=== PATIENT | female | born 1990 | race Caucasian/White ===

== ENCOUNTER 2017-09-24 16:08 | Emergency (ER) | payer OTHER ==
[~2017-09-24] VITALS: Ht 160 cm; Wt 79.4 kg
[~2017-09-24 16:08] MED LIST: AUGMENTIN 875875 MG PO; BLEPHAMIDE EYE D5 ML OPHTHALMIC; FLEXERIL PO; HYDROCODON-ACE1 EAC7 PO; IBUPROFEN 800800 M1 PO; IBUPROFEN 800800 MG PO; KEFLEX500 MG PO; NOHOMEMEDICATIONS; NORCO 5-325 TA1 EACH PO; PREDNISONE50 MG PO; VALACYCLOVIR500 MG PO; ZOFRAN ODT4 MG SUBLING; ZOFRAN4 MG PO
[2017-09-24 18:14] VITALS: BP 115/67
== END 2017-09-24 18:16 | disposition home or self-care (01) ==
LOC: M.ERS 16:08
DX: M79.602 Pain in left arm (principal); F17.210 Nicotine dependence, cigarettes, uncomplicated; Z88.8 Allergy status to other drugs, medicaments and biological substances

== ENCOUNTER 2018-01-21 19:20 | Emergency (ER) | payer OTHER ==
[~2018-01-21] VITALS: Ht 157.5 cm; Wt 81.7 kg
[2018-01-21 19:36] LABS: URINE BILIRUBIN NEGATIVE (Negative); URINE BLOOD 1+ (Negative); URINE CLARITY CLEAR; URINE COLOR YELLOW; URINE GLUCOSE-RANDOM NEGATIVE (Negative); URINE KETONES NEGATIVE (Negative); URINE LEUKOCYTES-REFLEX 1+ (Negative); URINE NITRITE-REFLEX NEGATIVE (Negative); URINE PROTEIN NEGATIVE (Negative); URINE SPECIFIC GRAVITY 1.025 (1.005-1.030); URINE UROBILINOGEN 0.2 E.U./dl (0.2-1.0)
[2018-01-21 19:46] LABS: SQUAMOUS >10 Many /LPF (0-3); URINE WBC-REFLEX 6-15 Few /HPF (0-5)
[2018-01-21 19:47] LABS: BACTERIA-REFLEX 1-9 Few /HPF (None Seen); CASTS None Seen /LPF (None Seen); CRYSTALS None Seen /LPF (None Seen); URINE RBC 3-10 Few /HPF (0-2)
[2018-01-21 20:18] VITALS: BP 125/66
== END 2018-01-21 20:20 | disposition home or self-care (01) ==
LOC: M.ERS 19:20
PROVIDERS: Emergency Medicine
DX: S40.022A Contusion of left upper arm, initial encounter (principal); F17.210 Nicotine dependence, cigarettes, uncomplicated; Z88.8 Allergy status to other drugs, medicaments and biological substances; X58.XXXA Exposure to other specified factors, initial encounter; Y93.89 Activity, other specified; Y92.89 Other specified places as the place of occurrence of the external cause; Y99.8 Other external cause status

== ENCOUNTER 2018-08-16 08:42 | Emergency (ER) | payer OTHER ==
[~2018-08-16] VITALS: Ht 160 cm; Wt 72.6 kg
[2018-08-16 09:48] LABS: ABSOLUTE EOSINOPHILS 0.1 thou/uL (0.0-0.7); ABSOLUTE LYMPHOCYTES 2.6 thou/uL (0.8-5.3); ABSOLUTE MONOCYTES 0.5 thou/uL (0.0-1.2); ABSOLUTE NEUTROPHILS 3.7 thou/uL (1.6-8.1); BASOPHILS 0.4 %; EOSINOPHILS 1.8 %; HEMATOCRIT 42.4 % (37.0-47.0); HEMOGLOBIN 14.8 gm/dL (12.0-15.0); LYMPHOCYTES 37.5 %; MCH 30.3 pg (26.0-34.0); MCHC 34.9 g/dL (28.0-37.0); MONOCYTES 6.7 %; MPV 7.9 fl. (7.2-11.1); NUCLEATED RBCS 0 /100WBC; PLATELET COUNT* 268 thou/uL (150-400); POLYS 53.6 %; RBC 4.88 mil/uL (4.20-5.00); RDW-CV 12.9 % (10.5-14.5); WBC 6.9 thou/uL (4.0-11.0)
[2018-08-16 10:06] LABS: ALBUMIN 3.6 g/dL (3.4-5.0); ALKALINE PHOSPHATASE 117 U/L (46-116); ANION GAP 8 mmol/L (7-16); BUN 8 mg/dL (7-18); CALCIUM 8.8 mg/dL (8.5-10.1); CHLORIDE 105 mmol/L (98-107); CO2 26 mmol/L (21-32); CREATININE 0.9 mg/dL (0.6-1.3); GLUCOSE 94 mg/dL (70-99); POTASSIUM 4.1 mmol/L (3.5-5.1); SGOT 23 U/L (15-37); SGPT 41 U/L (30-65); SODIUM 139 mmol/L (136-145); TOTAL BILIRUBIN 0.3 mg/dL (<0.1-1.0); TOTAL PROTEIN 7.5 g/dL (6.4-8.2); TROPONIN-I LEVEL <0.06 ng/mL (<0.06)
[2018-08-16 10:09] LABS: PROTIME 9.9 Seconds (9.20-11.50)
[2018-08-16 10:40] VITALS: BP 102/62
--- NOTE | 2018-08-16 13:15 | EKG ---
[place] [address] ELECTROCARDIOGRAM REPORT Name: IRINEO CRUZ Room: [facility]#: [id number] Admission: 08/16/18 Attend Phys: Discharge: 08/16/18 Date of : [birth year] Report #: [id number] THIS REPORT FOR: //name// [facility] ED Test Date: 2018-08-16 Test Time: 09:19:52 Pat Name: IRINEO CRUZ Department: Room: Gender: F [employer] Consultant: GAMALIEL : 1990 Requested By: Dung Elizabeth Order Number: [id number] MD: Gonzalo Lou Measurements Intervals [place] Rate: 79 P: 51 TN: 131 QRS: 69 QRSD: 87 T: 54 QT: 358 QTc: 411 Interpretive Statements Sinus rhythm No previous ECG available for comparison Electronically Signed On 08-16-2018 13:14:21 CDT by Gonzalo Lou [email or web address] <ELECTRONICALLY SIGNED> By: Gonzalo Lou MD, [facility] 08/16/18 1314 0919 8 Gonzalo Lou MD, FACC /EPI
--- NOTE | 2018-08-18 14:23 | CON ---
[facility] [address] [place] [address] CONSULTATION Name: IRINEO CRUZ Room: [facility] Sushant#: [id number] Admission: 08/16/18 Attend Phys: Discharge: 08/16/18 Date of : [birth year] Report #: [id number] THIS REPORT FOR: //name// CC: LAURA physician/PCP Dung Elizabeth DATE OF SERVICE: 08/16/2018 HISTORY OF PRESENT ILLNESS: This is a 28-year-old female patient who was evaluated by me for a right facial field deficit. The patient states that she is having headache. She is having nausea and she will not cooperate. I was called by Dr. Elizabeth, the Emergency Room physician, when I was in [facility] for a right-sided visual field deficit. He said the patient's deficit has started around 8:00 and she was having right hemianopsia. He indicated that the patient was not and she was not on any hormones, but the right visual deficit was there. She was within the window for TPA if it was a stroke and I came immediately to see the patient in [facility]. During that drive, I talked to the MRI people say and told to the patient on the table and do the MRI and MRA in this patient and they did that but the patient refused MRI. When I came in, the patient would not provide any good history. She said she has migraine headache and she has migraine headache multiple times in the past. She wants to tell me how severe they are. She said it is a generalized headache. She has nausea. She does not want any medication for that. She states she just usually sleeps through that. This patient has a large record in the computer and she had numerous Emergency Room visits in the past. She has been seen by multiple Emergency Room physicians in the past and Dr. Marin has seen this patient for headache in the past. She also has come to the Emergency Room for multiple other complaints. She would not provide any further history and just basically wanted to go home. I carried out 14-point review of systems the best I could but she did not come up with much history. PAST MEDICAL HISTORY: Positive for migraine. SOCIAL HISTORY: Unavailable because the patient did not provide that history in spite of asking her multiple times. PHYSICAL EXAMINATION: Pretty limited because she will not cooperate, but she did allow me to look at the visual cardozo and it does not appear that the patient has any hemianopsia. In fact, I could not detect any focal neurological examination on the limited exam she allowed. LABORATORY DATA: Her sodium is normal. Her white count is normal. RADIOLOGICAL DATA: She did have a CT scan of the head ordered by Emergency Room physician and [place] [address] CONSULTATION Name: IRINEO CRUZ [id number] Admission: 08/16/18 Attend Phys: Discharge: 08/16/18 Date of : [birth year] Report #: [id number] IMPRESSION AND PLAN: I discussed with the patient that she needs further workup. She refused MRI. I did not see a test on her. So, I was going to do a test in this patient and then, do a CT angiogram to see if we can detect any abnormality. She refused all the treatment. She is competent to make her decisions and she understands the consequences of noncompliance. However, she wanted to go home and I was not able to do any tests or treatment. I checked out with the Emergency Room physician again and I talked to the nurses looking after this patient. I had talked to MRI also. Thank you very much for this referral. <ELECTRONICALLY SIGNED> By: Pilo Leong MD 08/18/18 1423 1218 [id number] Leong MD /nt
== END 2018-08-16 10:42 | disposition home or self-care (01) ==
LOC: M.ERS 08:42
PROVIDERS: Emergency Medicine
DX: G43.809 Other migraine, not intractable, without status migrainosus (principal); F17.210 Nicotine dependence, cigarettes, uncomplicated; Z88.8 Allergy status to other drugs, medicaments and biological substances; Z88.6 Allergy status to analgesic agent; Z98.890 Other specified postprocedural states

== ENCOUNTER 2018-12-28 08:17 | Emergency (ER) | payer OTHER ==
[~2018-12-28] VITALS: Ht 162.6 cm; Wt 74.8 kg
[2018-12-28 08:40] LABS: URINE BILIRUBIN NEGATIVE (Negative); URINE BLOOD 2+ (Negative); URINE CLARITY CLEAR; URINE COLOR YELLOW; URINE GLUCOSE-RANDOM NEGATIVE (Negative); URINE KETONES NEGATIVE (Negative); URINE LEUKOCYTES-REFLEX NEGATIVE (Negative); URINE NITRITE-REFLEX NEGATIVE (Negative); URINE PROTEIN NEGATIVE (Negative); URINE SPECIFIC GRAVITY >= 1.030 (1.005-1.030); URINE UROBILINOGEN 0.2 E.U./dl (0.2-1.0)
[2018-12-28 08:52] LABS: SQUAMOUS >10 Many /LPF (0-3); URINE RBC None Seen /HPF (0-2); URINE WBC-REFLEX 6-15 Few /HPF (0-5)
[2018-12-28 08:53] LABS: CASTS None Seen /LPF (None Seen); CRYSTALS None Seen /LPF (None Seen)
[2018-12-28 09:03] LABS: ABSOLUTE BASOPHILS 0.1 thou/uL (0.0-0.2); ABSOLUTE LYMPHOCYTES 1.9 thou/uL (0.8-5.3); ABSOLUTE MONOCYTES 0.5 thou/uL (0.0-1.2); ABSOLUTE NEUTROPHILS 5.6 thou/uL (1.6-8.1); BASOPHILS 0.6 %; EOSINOPHILS 0.2 %; HEMATOCRIT 43.4 % (37.0-47.0); LYMPHOCYTES 23.2 %; MCH 30.3 pg (26.0-34.0); MCHC 34.6 g/dL (28.0-37.0); MCV 87.5 fL (80.0-100.0); MONOCYTES 5.9 %; MPV 7.4 fl. (7.2-11.1); NUCLEATED RBCS 0 /100WBC; PLATELET COUNT* 290 thou/uL (150-400); POLYS 70.1 %; RBC 4.96 mil/uL (4.20-5.00); RDW-CV 12.9 % (10.5-14.5)
[2018-12-28 09:17] LABS: CALCIUM 9.2 mg/dL (8.5-10.1); CREATININE 0.9 mg/dL (0.6-1.3); POTASSIUM 4.6 mmol/L (3.5-5.1)
[2018-12-28 09:27] LABS: ALBUMIN 3.9 g/dL (3.4-5.0); TOTAL BILIRUBIN 0.4 mg/dL (<0.1-1.0); TOTAL PROTEIN 7.6 g/dL (6.4-8.2)
[2018-12-28] MEDS ORDERED: MACROBID 100 M100 M1 PO (09:42)
[2018-12-28 09:51] VITALS: BP 145/91
== END 2018-12-28 09:53 | disposition home or self-care (01) ==
LOC: M.ERS 08:17
PROVIDERS: Family Medicine
DX: N39.0 Urinary tract infection, site not specified (principal); G43.909 Migraine, unspecified, not intractable, without status migrainosus; F17.210 Nicotine dependence, cigarettes, uncomplicated; Z88.6 Allergy status to analgesic agent; Z88.8 Allergy status to other drugs, medicaments and biological substances; Z98.890 Other specified postprocedural states

== ENCOUNTER 2019-07-25 08:25 | Emergency (ER) | payer OTHER ==
[~2019-07-25] VITALS: Ht 160 cm; Wt 73.9 kg
[~2019-07-25 08:25] MED LIST changes: +MACROBID 100 M100 M1 PO
[2019-07-25 09:13] VITALS: BP 106/72
== END 2019-07-25 09:15 | disposition home or self-care (01) ==
LOC: M.ERS 08:25
DX: J02.9 Acute pharyngitis, unspecified (principal); G43.909 Migraine, unspecified, not intractable, without status migrainosus; F17.210 Nicotine dependence, cigarettes, uncomplicated; Z88.6 Allergy status to analgesic agent; Z88.8 Allergy status to other drugs, medicaments and biological substances; Z98.890 Other specified postprocedural states

== ENCOUNTER 2020-06-25 10:12 | Emergency (ER) | payer OTHER ==
[~2020-06-25] VITALS: Ht 157.5 cm; Wt 63.5 kg
[2020-06-25 10:23] VITALS: BP 126/81
== END 2020-06-25 10:50 | disposition home or self-care (01) ==
LOC: M.ERS 10:12
DX: M67.431 Ganglion, right wrist (principal); F17.210 Nicotine dependence, cigarettes, uncomplicated; G43.909 Migraine, unspecified, not intractable, without status migrainosus; Z98.890 Other specified postprocedural states

== ENCOUNTER 2020-07-23 14:09 | Emergency (ER) | payer OTHER ==
[~2020-07-23] VITALS: Ht 157.5 cm; Wt 81.7 kg
[2020-07-23] MEDS ORDERED: HYDROCODON-ACE1 EAC7 PO (14:28)
[2020-07-23] MEDS ORDERED: KEFLEX500 M1 PO (14:28)
[2020-07-23 14:47] VITALS: BP 129/75
== END 2020-07-23 14:48 | disposition home or self-care (01) ==
LOC: M.ERS 14:09
DX: S61.303A Unspecified open wound of left middle finger with damage to nail, initial encounter (principal); G43.909 Migraine, unspecified, not intractable, without status migrainosus; F17.210 Nicotine dependence, cigarettes, uncomplicated; Z88.6 Allergy status to analgesic agent; Z88.8 Allergy status to other drugs, medicaments and biological substances; Z98.890 Other specified postprocedural states; W26.8XXA Contact with other sharp object(s), not elsewhere classified, initial encounter; Y93.89 Activity, other specified; Y92.89 Other specified places as the place of occurrence of the external cause; Y99.8 Other external cause status

== ENCOUNTER 2020-09-07 22:19 | Emergency (ER) | payer OTHER ==
[~2020-09-07] VITALS: Ht 160 cm; Wt 81.7 kg
[~2020-09-07 22:19] MED LIST changes: +KEFLEX500 M1 PO
[2020-09-07] MEDS ORDERED: PREDNISONE50 MG PO (23:45)
[2020-09-07 23:53] VITALS: BP 112/54
== END 2020-09-07 23:53 | disposition home or self-care (01) ==
LOC: M.ERS 22:19
DX: T78.49XA Other allergy, initial encounter (principal); G43.909 Migraine, unspecified, not intractable, without status migrainosus; F17.210 Nicotine dependence, cigarettes, uncomplicated; Z88.6 Allergy status to analgesic agent; Z88.8 Allergy status to other drugs, medicaments and biological substances; Z98.890 Other specified postprocedural states; X58.XXXA Exposure to other specified factors, initial encounter

== ENCOUNTER 2020-09-11 19:51 | Emergency (ER) | payer OTHER ==
[~2020-09-11] VITALS: Ht 160 cm; Wt 81.7 kg
[2020-09-11 20:39] VITALS: BP 140/90
== END 2020-09-11 20:39 | disposition home or self-care (01) ==
LOC: M.ERS 19:51
DX: S61.012A Laceration without foreign body of left thumb without damage to nail, initial encounter (principal); G43.909 Migraine, unspecified, not intractable, without status migrainosus; F17.210 Nicotine dependence, cigarettes, uncomplicated; Z98.890 Other specified postprocedural states; Z88.6 Allergy status to analgesic agent; Z88.8 Allergy status to other drugs, medicaments and biological substances; W26.8XXA Contact with other sharp object(s), not elsewhere classified, initial encounter; Y93.89 Activity, other specified; Y92.89 Other specified places as the place of occurrence of the external cause; Y99.0 Civilian activity done for income or pay

== ENCOUNTER 2020-12-05 15:20 | Emergency (ER) | payer OTHER ==
[~2020-12-05] VITALS: Ht 157.5 cm; Wt 80.3 kg
[2020-12-05] MEDS ORDERED: NAPROSYN500 M1 PO (16:57)
[2020-12-05 17:03] VITALS: BP 122/68
== END 2020-12-05 17:04 | disposition home or self-care (01) ==
LOC: M.ERS 15:20
DX: S60.011A Contusion of right thumb without damage to nail, initial encounter (principal); G43.909 Migraine, unspecified, not intractable, without status migrainosus; F17.210 Nicotine dependence, cigarettes, uncomplicated; Z98.890 Other specified postprocedural states; Z88.8 Allergy status to other drugs, medicaments and biological substances; W22.8XXA Striking against or struck by other objects, initial encounter; Y93.89 Activity, other specified; Y92.89 Other specified places as the place of occurrence of the external cause; Y99.8 Other external cause status

== ENCOUNTER 2021-04-08 22:22 | Emergency (ER) | payer OTHER ==
[~2021-04-08] VITALS: Ht 160 cm; Wt 75.3 kg
[~2021-04-08 22:22] MED LIST changes: +NAPROSYN500 M1 PO
[2021-04-08 23:36] VITALS: BP 134/54
== END 2021-04-08 23:36 | disposition home or self-care (01) ==
LOC: M.ERS 22:22
DX: M25.571 Pain in right ankle and joints of right foot (principal); F17.210 Nicotine dependence, cigarettes, uncomplicated; Z88.5 Allergy status to narcotic agent